=== PATIENT | female | born 1955 ===

== ENCOUNTER 2021-08-12 16:30 | Inpatient (IN) | payer OTHER ==
[~2021-08-12] VITALS: Ht 154.9 cm; Wt 102.0 kg
[2021-08-12 18:06] VITALS: BP 121/49; PULSE 88; TEMP 98
--- NOTE | 2021-08-12 20:00 | NUR ---
PT IN BED, SPOUSE AT BEDSIDE. HAS INT TO LEFT AC, CONNECTED IVF AND INFUSING AT 250CC/HR WITHOUT REDNESS OR SWELLING. B/P READ WAS LOW, JULISSA AVITIA IN ROOM. PT IS ALERT AND ORIENTED X4. BRAVO CATH TO BSD WITH YELLOW URINE. PT ALSO INFORMED BY JULISSA AVITIA SHE HAS A RT KIDNEY STONE WITH HYDRONEPHROSIS.
[2021-08-12] MEDS ORDERED: SYNTHROID0.1 MG/TAB PO (20:40)
[2021-08-12] MEDS ORDERED: MOBIC 7.5MG7.5 MG PO (20:41)
[2021-08-12] MEDS ORDERED: PRINIVIL40 MG PO (20:41)
[2021-08-12] MEDS ORDERED: PRILOSEC 20MG20 MG PO (20:42)
[2021-08-12] MEDS ORDERED: LOFIBRA160 MG PO (20:42)
[2021-08-12] MEDS ORDERED: LIPOFEN150 MG PO (20:42)
[2021-08-12] MEDS ORDERED: HCTZ 25MG TAB25 MG PO (20:43)
[2021-08-12] MEDS ORDERED: NORVASC 5MG5 MG/TAB PO (20:43)
[2021-08-12] MEDS ORDERED: MULTI VITAMINS1 TAB PO (20:44)
[2021-08-12] MEDS ORDERED: GLUCOSAMINE SUL1 TAB PO (20:44)
[2021-08-12] MEDS ORDERED: ASPIRIN E.C. 8181 MG PO (20:45)
[2021-08-12] MEDS ORDERED: LUTEIN20 M1 PO (20:46)
[2021-08-12] MEDS ORDERED: NATURE'S BLE1000 MCG PO (20:47)
[2021-08-12] MEDS ORDERED: D3-5050000 IU PO (20:48)
[2021-08-12 20:49] VITALS: BP 89/46; PULSE 87; TEMP 97.7
[2021-08-12 21:44] LABS: CALCIUM 8.5 mg/dL (8.4-10.2); CREATININE, serum 6.8 mg/dL (0.57-1.11); POTASSIUM 4.7 mmol/L (3.5-4.5)
[2021-08-12 22:04] LABS: HEMOGLOBIN 12.6 g/dl (12.5-16.0); MEAN CELL VOLUME 88 fl (80.0-100.0); MEAN CORPUSCULAR HEMOGLOBIN 29 pg (27-31); MEAN CORPUSCULAR HGB CONC 33 g/dl (33.0-37.0); PLATELET COUNT 360 K/mm3 (130-400); REDCELL DISTRIBUTION WIDTH-CV 15.1 % (11.5-14.5)
--- NOTE | 2021-08-12 23:01 | NUR ---
PT REPORTS HEADACHE, TYLENOL 650MG PO GIVEN. TAKES BROTH AND WATER ONLY.
[2021-08-12 23:04] LABS: MUCOUS Present (NOT PRESENT); PH 5 (5-8); SQUAMOUS EPITHELIAL 0-2 /hpf (0-10); URINE APPEARANCE Hazy (CLEAR/HAZY); URINE BACTERIA Rare /hpf (NONE SEEN); URINE BILIRUBIN Negative (NEGATIVE); URINE BLOOD Negative (NEGATIVE); URINE CALCIUM OXALATE CRYSTAL Present (NOT PRESENT); URINE COLOR Yellow (YELLOW); URINE GLUCOSE Negative (NEGATIVE); URINE KETONE Negative (NEGATIVE); URINE LEUKOCYTE ESTERASE Trace (NEGATIVE); URINE NITRATE Negative (NEGATIVE); URINE PROTEIN(semi-quant) Negative (NEGATIVE); URINE RBC 0-2 /hpf (0-2); URINE UROBILINOGEN Negative (NEGATIVE)
[2021-08-12 23:19] LABS: COLLECTION METHOD CLEAN CATCH
[2021-08-13] VITALS (8 sets, daily range): BP systolic 86–115; BP diastolic 40–65; PULSE 80–90; TEMP 97.7–98.4
--- NOTE | 2021-08-13 04:02 | NUR ---
PT REPORTS BACK PAIN, MEDICATED WITH MORPHINE 1MG IVP AT THIS TIME.
--- NOTE | 2021-08-13 05:00 | NUR ---
REPORTS ABLE TO REST AFTER MORPHINE. NPO FOR POSSIBLE KIDNEY STENT TODAY.
--- NOTE | 2021-08-13 07:03 | NUR ---
NOTIFIED DR RILEY OF CONSULT
--- NOTE | 2021-08-13 08:31 | NUR ---
PT RESTING IN BED WAITING FOR SCHEDULE FOR OR TO HAVE STENT PLACED BY DR. LY. PT IS A/O X3 IV RUNNING @250 ML/HR PER ORDERS TO LAC. PT AT BEDSIDE. VSS. PO TYLENOL GIVEN FOR C/O H/A.
[2021-08-13 08:33] LABS: HEMOGLOBIN 11.7 g/dl (12.5-16.0); MEAN CELL VOLUME 89 fl (80.0-100.0); MEAN CORPUSCULAR HEMOGLOBIN 30 pg (27-31); MEAN CORPUSCULAR HGB CONC 33 g/dl (33.0-37.0); PLATELET COUNT 317 K/mm3 (130-400); RED BLOOD COUNT 3.96 M/mm3 (4.10-5.30); REDCELL DISTRIBUTION WIDTH-CV 15.2 % (11.5-14.5)
[2021-08-13 08:37] LABS: HEMATOCRIT 35.3 % (37.0-47.0)
[2021-08-13 08:39] LABS: CALCIUM 8.1 mg/dL (8.4-10.2); CREATININE, serum 5.47 mg/dL (0.57-1.11); POTASSIUM 4.4 mmol/L (3.5-4.5)
--- NOTE | 2021-08-13 09:38 | NUR ---
NOTIFIED RASHAWN AVITIA AND DR. SAHNI OF LAB RESULTS.
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
[2021-08-13 16:36] LABS: CALCIUM 8.3 mg/dL (8.4-10.2); CREATININE, serum 4.58 mg/dL (0.57-1.11); POTASSIUM 4.2 mmol/L (3.5-4.5)
--- NOTE | 2021-08-13 23:11 | NUR ---
Patient alert and oriented. Patient lower back pain is tolerable at this time and denies need for pain med. Bowers catheter in place and draining clear yellow urine. Informed patient of NPO from midnight for scheduled cystoscopy 8 am. Patient verbalized understanding. IVF infusing per MAR. Call light in reach. Will continue to monitor.
[2021-08-14] VITALS (11 sets, daily range): BP systolic 104–124; BP diastolic 56–85; PULSE 50–86; TEMP 97.7–98.8
--- NOTE | 2021-08-14 06:44 | NUR ---
Patient maintained NPO from midnight. PRN Tylenol given over the night for lower back pain and headache. Call light in reach.
[2021-08-14 07:09] LABS: HEMOGLOBIN 10.9 g/dl (12.5-16.0); MEAN CELL VOLUME 87 fl (80.0-100.0); MEAN CORPUSCULAR HEMOGLOBIN 29 pg (27-31); MEAN CORPUSCULAR HGB CONC 33 g/dl (33.0-37.0); MEAN PLATELET VOLUME 9.3 fl (7.4-10.4); PLATELET COUNT 298 K/mm3 (130-400); RED BLOOD COUNT 3.76 M/mm3 (4.10-5.30); REDCELL DISTRIBUTION WIDTH-CV 15.6 % (11.5-14.5)
[2021-08-14 07:11] LABS: HEMATOCRIT 32.6 % (37.0-47.0)
[2021-08-14 07:17] LABS: CALCIUM 8.6 mg/dL (8.4-10.2); CREATININE, serum 3.16 mg/dL (0.57-1.11); POTASSIUM 4.4 mmol/L (3.5-4.5)
--- NOTE | 2021-08-14 07:43 | NUR ---
ASSESSMENT PERFORMED, LR PULLED FOR PREOP FLUID, CONSENT OBTAINED FOR CYSTO, PT DENIES PAIN AT THIS TIME, PT THEN TAKEN OFF FLOOR FOR CYSTO.
--- NOTE | 2021-08-14 07:43 | NUR ---
CRITICAL CO2 REPORTED TO DR. SANCHEZ, NO NEW ORDERS AT THIS TIME
[2021-08-14 08:28] LABS: ANISOCYTOSIS 1+; BAND 2 % (0-10); EOSINOPHIL 9 % (0-4); LYMPHOCYTE 28 % (20.0-51.0); NEUTROPHILS 51 % (42.0-75.2); PLATELET ESTIMATE NORMAL (NORMAL)
--- NOTE | 2021-08-14 09:20 | NUR ---
PT ARRIVED BACK FROM CYSTO, PT DROWSY BUT AROUSES SPONTANEOUSLY AND AOX4, MEDICATINOS GIVEN PER ORDERS, PT DENIES PAIN/DISCOMFORT, VITALS MACHINE ATTACHED NO OTHER NEEDS
--- NOTE | 2021-08-14 09:58 | NUR ---
WHEN TALKING TO PT SHE REPORTS BLURRY VISION, SHE STATES BLURRY VISION FOR ABOUT A WEEK "SINCE I HAD THE FLU". I ASKED IF SHE WORE GLASSES AND SHE SAID SHE DID BUT VISION WAS STILL BLURRY. WILL REPORT TO PHYSICIAN.
--- NOTE | 2021-08-14 10:36 | NUR ---
PT REPORTS BLURRY VISION WITH GLASSES ON FOR DISTANCE, REPORTS SHE IS DUE FOR AN EYE EXAM
--- NOTE | 2021-08-14 14:25 | NUR ---
PT REPORTS FLUID BAG IS ALMOST EMPTY, DR. SANCHEZ NOTIFIED OF RATE OF 200ML/HR AND HE WANTED TO CONTINUE THIS RATE, NEW FLUID BAG HUNG, PT REPORTED R FLANK PAIN BUT DENIES NEED FOR TYLENOL.
--- NOTE | 2021-08-14 14:43 | NUR ---
community placement worker is informed patient is requesting to speak. This social worker health services met with patient and spouse Mitch at bedside; spouse brought pt living will to be scanned into pt chart. Patient living will copied and placed to be scanned into her medical record. Original returned to patient. Pt informs of belief she will be discharged to home tomorrow, pending labs. She informs she continues to have no needs anticipated at discharge. *Discharge plan: D/c to home with family*
--- NOTE | 2021-08-14 17:59 | NUR ---
PT REPORTS HEADACHE HAS GONE AWAY, DENIES PAIN AT THIS TIME, INDEPENDENT IN ROOM, UNEVENTFUL SHIFT, NO OTHER NEEDS
[2021-08-15 04:00] VITALS: BP 127/59; PULSE 17; TEMP 98
[2021-08-15 06:36] LABS: BASO % 0.4 % (0.0-2.0); EOS % 0.8 % (0.0-4.0); GRAN # 3.8 K/mm3 (1.4-6.5); GRAN % 74.1 % (42.2-75.2); LYMPH # 0.9 K/mm3 (1.2-3.4); LYMPH % 17.9 % (20.0-51.0); MEAN CELL VOLUME 89 fl (80.0-100.0); MEAN CORPUSCULAR HGB CONC 33 g/dl (33.0-37.0); MEAN PLATELET VOLUME 9.3 fl (7.4-10.4); MONO # 0.3 K/mm3 (0.1-0.6); MONO % 6.2 % (1.7-9.3); PLATELET COUNT 286 K/mm3 (130-400); RED BLOOD COUNT 3.31 M/mm3 (4.10-5.30); REDCELL DISTRIBUTION WIDTH-CV 15.9 % (11.5-14.5)
[2021-08-15 06:44] LABS: HEMATOCRIT 29.5 % (37.0-47.0); HEMOGLOBIN 9.8 g/dl (12.5-16.0); MEAN CORPUSCULAR HEMOGLOBIN 30 pg (27-31)
[2021-08-15 07:07] LABS: ALBUMIN 2.8 gm/dL (3.4-4.8); CALCIUM 8.8 mg/dL (8.4-10.2); CREATININE, serum 2.1 mg/dL (0.57-1.11); MAGNESIUM 1.4 mg/dL (1.6-2.6); PHOSPHOROUS 2.5 mg/dL (2.3-4.7); POTASSIUM 4.6 mmol/L (3.5-4.5)
[2021-08-15 08:24] VITALS: BP 130/74; PULSE 69; TEMP 97.6
--- NOTE | 2021-08-15 08:35 | NUR ---
PT IS AWAKE AND EATING BREAKFAST AT THIS TIME. FAMILY IS AT BEDSIDE. DENIES ANY PAIN. PT DID ASK QUESTIONS REGARDING LABS. DISCUSSED THIS MORNINGS RESULTS WITH HER, STATES SHE IS WAITING FOR DR. RILEY TO COME AND SEE HER. SHE IS HOPING FOR DISCHARGE TODAY. NO OTHER CONCERNS AT THIS TIME.
[2021-08-15 11:28] VITALS: BP 115/48; PULSE 54; TEMP 97.6
[2021-08-15 16:24] VITALS: BP 121/67; PULSE 65; TEMP 97.9
--- NOTE | 2021-08-15 18:56 | NUR ---
PT HAD UNEVENTFUL DAY. PT DID TAKE A SHOWER, AND FEELS MUCH BETTER TODAY. REPORT WILL BE GIVEN TO BILINGUAL S[employer]OL PSYCHOLOGIST RN.
[2021-08-15 19:50] VITALS: BP 130/70; PULSE 68; TEMP 97.7
[2021-08-16 00:09] VITALS: BP 122/67; PULSE 71; TEMP 98.1
[2021-08-16 03:40] VITALS: BP 141/76; PULSE 73; TEMP 97.8
[2021-08-16 06:35] LABS: BASO % 0.3 % (0.0-2.0); EOS # 0.8 K/mm3 (0.0-0.7); EOS % 10.7 % (0.0-4.0); GRAN # 4.1 K/mm3 (1.4-6.5); GRAN % 58.3 % (42.2-75.2); HEMOGLOBIN 10.2 g/dl (12.5-16.0); LYMPH # 1.8 K/mm3 (1.2-3.4); MEAN CELL VOLUME 90 fl (80.0-100.0); MEAN CORPUSCULAR HEMOGLOBIN 29 pg (27-31); MEAN CORPUSCULAR HGB CONC 33 g/dl (33.0-37.0); MEAN PLATELET VOLUME 9.4 fl (7.4-10.4); MONO # 0.4 K/mm3 (0.1-0.6); MONO % 5.1 % (1.7-9.3); PLATELET COUNT 325 K/mm3 (130-400); RED BLOOD COUNT 3.47 M/mm3 (4.10-5.30); REDCELL DISTRIBUTION WIDTH-CV 15.9 % (11.5-14.5)
[2021-08-16 06:38] LABS: HEMATOCRIT 31.1 % (37.0-47.0)
[2021-08-16 07:03] LABS: ALBUMIN 2.9 gm/dL (3.4-4.8); CALCIUM 8.8 mg/dL (8.4-10.2); CREATININE, serum 1.37 mg/dL (0.57-1.11); MAGNESIUM 1.3 mg/dL (1.6-2.6); PHOSPHOROUS 1.9 mg/dL (2.3-4.7); POTASSIUM 4.4 mmol/L (3.5-4.5)
[2021-08-16 07:48] VITALS: BP 138/72; PULSE 68; TEMP 98
[2021-08-16] MEDS ORDERED: PROBIOTIC ACID1 EAC3 PO (09:03)
[2021-08-16] MEDS ORDERED: MAG-OX 400400 MG/TAB PO (09:03)
[2021-08-16] MEDS ORDERED: IMODIUM 2MG CAPS2 MG PO (09:03)
--- NOTE | 2021-08-16 09:10 | NUR ---
PT STANDING UP BY SINK WASHING HANDS. PT STATES THAT SHE HAS BEEN HAVING SOME DIARRHEA. SHE HAS MARKED HER OUTPUT ON HER BOARD IN HER ROOM. PT STATES THAT SHE WAS DONE WITH BREASKFAST SO TRAY WAS REMOVED. PT STATES NO OTHER NEEDS AT THIS TIME. PT STATES NO PAIN AT THIS TIME. PT SAT IN BEDSIDE CHAIR. CALL LIGHT WAS PLACED WITHIN REACH.
[2021-08-16 11:25] VITALS: BP 129/70; PULSE 68; TEMP 97.8
== END 2021-08-16 15:15 | disposition home or self-care (01) | DRG 660 ==
LOC: MEDICAL 16:30
PROVIDERS: Physician Assistant; Urology; ADMIT Internal Medicine
PROC: 0T768DZ Dilation of Right Ureter with Intraluminal Device, Via Natural or Artificial Opening Endoscopic (ICD-10-PCS; principal; 2021-08-14 08:00)
PROC: BT1D1ZZ Fluoroscopy of Right Kidney, Ureter and Bladder using Low Osmolar Contrast (ICD-10-PCS; 2021-08-14 08:00)
PROC: 0TC68ZZ Extirpation of Matter from Right Ureter, Via Natural or Artificial Opening Endoscopic (ICD-10-PCS; 2021-08-14 08:00)
DX: N13.2 Hydronephrosis with renal and ureteral calculous obstruction (principal); A08.0 Rotaviral enteritis; E87.2 Acidosis; Z68.41 Body mass index [BMI] 40.0-44.9, adult; N17.9 Acute kidney failure, unspecified; I10 Essential (primary) hypertension; E78.5 Hyperlipidemia, unspecified; E03.9 Hypothyroidism, unspecified; G89.29 Other chronic pain; M54.9 Dorsalgia, unspecified; E66.01 Morbid (severe) obesity due to excess calories; E87.5 Hyperkalemia; E83.42 Hypomagnesemia; Z79.82 Long term (current) use of aspirin; Z87.442 Personal history of urinary calculi; Z23 Encounter for immunization
CPT/HCPCS: 99223-AI; 99232-AI; 99233-AI; 99239; C1769; C2617; J0690; J0696; J1100; J1885; J2270; J2405; J2704; J3010; J3475; J7030; J7120; Q9967